=== PATIENT | female | born 1970 | race Asian ===

== ENCOUNTER 2020-12-10 07:48 | Emergency (ER) | payer SELFPAY ==
[~2020-12-10] VITALS: Ht 157.5 cm; Wt 72.6 kg
[2020-12-10] MEDS ORDERED: IV NORMAL SALINE 500 ML BAG IV ONE (08:00)
[2020-12-10] MEDS ORDERED: ONDANSETRON 4 MG/2 ML VIAL IV ONE (08:00)
[2020-12-10] MEDS ORDERED: MORPHINE SULFATE 2 MG/1 ML DISP.SYRIN IV ONE (08:00)
[2020-12-10 08:05] LABS: BASOPHILS % (AUTO) 0.3 % (0.0-2.0); HEMOGLOBIN 12.9 g/dL (10.9-14.3); LYMPHOCYTES # (AUTO) 0.9 K/uL (20.0-40.0); LYMPHOCYTES % (AUTO) 6.5 % (20.5-51.5); MEAN CORPUSCULAR HEMOGLOBIN 30.8 uug (24.7-32.8); MEAN CORPUSCULAR HGB CONC 34 g/dL (32.3-35.6); MEAN CORPUSCULAR VOLUME 90.7 fL (75.5-95.3); MONOCYTES # (AUTO) 0.9 K/uL (2.0-10.0); MONOCYTES % (AUTO) 6.7 % (0.0-11.0); NEUTROPHILS # (AUTO) 11.6 K/uL (1.8-8.9); NEUTROPHILS % (AUTO) 86.5 % (38.5-71.5); PLATELET COUNT (AUTO) 169 K/uL (179-408); RED BLOOD CELL COUNT(AUTO) 4.19 MIL/uL (3.63-4.92); WHITE BLOOD COUNT (AUTO) 13.4 K/uL (3.8-11.8)
[2020-12-10] MEDS ORDERED: ONDANSETRON 4 MG/2 ML VIAL ONE (08:08)
[2020-12-10] MEDS ORDERED: MORPHINE SULFATE 4 MG/1 ML DISP.SYRIN ONE (08:09)
[2020-12-10 08:18] LABS: BILIRUBIN,DIRECT 0.4 mg/dL (0.0-0.2); BILIRUBIN,TOTAL 1.3 mg/dL (0.2-1.0); CREATININE 0.8 mg/dL (0.6-1.3); POTASSIUM 3.3 mmol/L (3.5-5.1); TOTAL PROTEIN, SERUM 8.2 g/dL (6.4-8.2)
--- NOTE | 2020-12-10 08:25 | NUR ---
Patient seen by . IV placed in left arm, meds given as ordered.
--- NOTE | 2020-12-10 08:57 | NUR ---
Patient states pain and nausea have diminished
[2020-12-10 09:27] LABS: *BILIRUBIN,URIN NEGATIVE (NEGATIVE); *CLARITY,URINE CLEAR (CLEAR); *COLOR,URINE YELLOW (YELLOW); *KETONES,URINE 3+ (NEGATIVE); LEUKOCYTE ESTERASE ,URINE NEGATIVE (NEGATIVE); NITRITE, URINE NEGATIVE (NEGATIVE); UGLUCOSE NEGATIVE (NEGATIVE)
[2020-12-10 09:28] LABS: *URINE HCG, QUAL NEG (NEGATIVE)
[2020-12-10 09:35] LABS: *BLOOD, URINE 1+ (NEGATIVE)
[2020-12-10 09:36] LABS: MUCUS,URINE FEW /LPF (0-FEW); RBC,URINE 0-3 /HPF (0-3); SQUAMOUS EPITHELIAL CELL,UR MODERATE /HPF (NONE SEEN)
[2020-12-10 09:38] LABS: BACTERIA,URINE FEW /HPF (NONE SEEN)
[2020-12-10] MEDS ORDERED: CEFTRIAXONE 1 G in IV DEXTROSE 5% 50 ML IV ONE (09:45)
[2020-12-10] MEDS ORDERED: CEFTRIAXONE /D5W 50ML IVPB **ER PYXIS IV ONE (09:51)
[2020-12-10] MEDS ORDERED: IBUP-1957 PO (09:56)
[2020-12-10] MEDS ORDERED: CIPR-262 PO (09:56)
--- NOTE | 2020-12-10 10:00 | NUR ---
DC AND FOLLOW UP INSTRUCTIONS GIVEN AND EXPLAINED TO PATIENT WHO STATES HE UNDERSTANDS ALL INSTRUCTIONS
--- NOTE | 2020-12-10 10:08 | NUR ---
IV removed. Catheter intact and site benign. Pressure and 4x4 gauze applied to site. No bleeding noted.
== END 2020-12-10 10:08 | disposition home or self-care (01) ==
LOC: ER 07:48
DX: N39.0 Urinary tract infection, site not specified (principal); N13.9 Obstructive and reflux uropathy, unspecified
CPT/HCPCS: 36415; 74176; 76857; 80048; 80076; 81001; 83690; 84703; 85025; 87086; 96361; 96365; 96375; 99285; J0696; J2270; J2405; A4663

== ENCOUNTER 2020-12-11 12:16 | Inpatient (IN) | payer SELFPAY ==
[~2020-12-11] VITALS: Ht 157.5 cm; Wt 73.9 kg
[~2020-12-11 12:16] MED LIST: CIPR-262 PO; IBUP-1957 PO
--- NOTE | 2020-12-11 12:33 | NUR ---
Comfort measures maintained, warm blankets on, pending MD evaluation, NAD.
--- NOTE | 2020-12-11 12:38 | NUR ---
[email or web address], medical screening exam in progress
--- NOTE | 2020-12-11 12:59 | NUR ---
to CT scan in stable condition
[2020-12-11] MEDS ORDERED: IV NORMAL SALINE 1000 ML BAG IV ONE (13:00)
[2020-12-11] MEDS ORDERED: METOCLOPRAMIDE HCL 10 MG/2 ML VIAL IV ONE (13:00)
[2020-12-11] MEDS ORDERED: CEFTRIAXONE 1 G in IV DEXTROSE 5% 50 ML IV ONE (13:00)
[2020-12-11] MEDS ORDERED: diphenhydrAMINE 25 MG CAP PO ONE (13:00)
[2020-12-11] MEDS ORDERED: diphenhydrAMINE 50 MG/1 ML VIAL IV ONE (13:00)
[2020-12-11] MEDS ORDERED: ONDANSETRON 4 MG/2 ML VIAL IV ONE (13:00)
[2020-12-11] MEDS ORDERED: PROCHLORPERAZINE EDISYLATE 10 MG/2 ML VIAL IV ONE (13:00)
[2020-12-11] MEDS ORDERED: CEFTRIAXONE /D5W 50ML IVPB **ER PYXIS IV ONE (13:02)
[2020-12-11] MEDS ORDERED: diphenhydrAMINE 50 MG/1 ML VIAL ONE (13:02)
--- NOTE | 2020-12-11 13:09 | NUR ---
Patient is back from CT scan in same condition and prefers to keep her eyes close 2/2 headaches. Patient moans loudly & she said that hearing herself moan comforts her with low threshold for pains noted. Automatic BP cuff makes this patient moan loudly during blood pressure measurement.
[2020-12-11 13:50] LABS: CREATININE 0.8 mg/dL (0.6-1.3)
[2020-12-11] MEDS ORDERED: POTASSIUM CHLORIDE 20 MEQ TAB.PRT.SR PO ONE (14:00)
[2020-12-11] MEDS ORDERED: IV NORMAL SALINE 500 ML BAG IV ONE (14:15)
[2020-12-11 14:16] LABS: BASOPHILS % (AUTO) 0.1 % (0.0-2.0); HEMATOCRIT 34.8 % (31.2-41.9); LYMPHOCYTES # (AUTO) 0.9 K/uL (20.0-40.0); LYMPHOCYTES % (AUTO) 4.4 % (20.5-51.5); MEAN CORPUSCULAR HEMOGLOBIN 31.2 uug (24.7-32.8); MEAN CORPUSCULAR HGB CONC 34 g/dL (32.3-35.6); MEAN CORPUSCULAR VOLUME 90.7 fL (75.5-95.3); MONOCYTES # (AUTO) 1.5 K/uL (2.0-10.0); MONOCYTES % (AUTO) 7.5 % (0.0-11.0); NEUTROPHILS # (AUTO) 18.1 K/uL (1.8-8.9); PLATELET COUNT (AUTO) 140 K/uL (179-408); RED BLOOD CELL COUNT(AUTO) 3.83 MIL/uL (3.63-4.92); WHITE BLOOD COUNT (AUTO) 20.6 K/uL (3.8-11.8)
[2020-12-11] MEDS ORDERED: DEXAMETHASONE SOD PHOSPHATE 4 MG INJ IV ONE (14:30)
[2020-12-11] MEDS ORDERED: VANCOMYCIN 1G/D5W 200 ML PIGGYBACK IV ONE (14:30)
[2020-12-11] MEDS ORDERED: DEXAMETHASONE SOD PHOSPHATE 10 MG INJ ONE (14:38)
[2020-12-11 15:21] LABS: *URINE HCG, QUAL NEGATIVE (NEGATIVE)
--- NOTE | 2020-12-11 16:20 | NUR ---
Patient is resting comfortably in bed with eyes closed, pending [facility] hospitalist callback
--- NOTE | 2020-12-11 16:30 | NUR ---
received report from ER nurse, Una, pt c/o headaches and nausea. awake alert and oriented x4, pt on room air, no reports of pain at this time, no signs of distress. pt is ambulatory, BRP, able to swallow whole pills, pt continent of bowel and bladder. pt has IV access on the left hand 20g, intact and patent. bed in low and locked position, call light within reach, safety an dfall precautions in place. will continue with plan of care.
[2020-12-11] MEDS ORDERED: MAGNESIUM HYDROXIDE 30 ML LIQUID UDC PO PRN (17:15)
[2020-12-11] MEDS ORDERED: ACETAMINOPHEN 325 MG TABLET PO PRN (17:15)
[2020-12-11] MEDS ORDERED: ONDANSETRON 4 MG/2 ML VIAL IV PRN (17:15)
[2020-12-11] MEDS ORDERED: ZOLPIDEM 5 MG TABLET PO PRN (17:15)
[2020-12-11] MEDS ORDERED: Z GUARD REMEDY PASTE 57 GM TUBE TOP PRN (17:15)
[2020-12-11] MEDS ORDERED: MORPHINE SULFATE 2 MG/1 ML DISP.SYRIN IV PRN (17:15)
[2020-12-11] MEDS ORDERED: METOCLOPRAMIDE HCL 10 MG/2 ML VIAL IV PRN (17:15)
[2020-12-11 17:25] VITALS: BP 102/57
[2020-12-11] MEDS ORDERED: SUMATRIPTAN SUCCINATE 6 MG/0.5 ML VIAL SQ ONE (18:30)
--- NOTE | 2020-12-11 19:30 | NUR ---
Received patient lying in bed. AAOx4. In no acute distress. Denies any pain or SOB at this time. IV site on left hand intact and patent. Dressing changed on IV site. Will start IV fluids per order. Denies any nausea or vomiting. Safety measure initiated and call ugalde within reached.
[2020-12-11] MEDS: IV NS 1000 ML 1,000 ML IV PRN (19:38)
[2020-12-11 20:10] VITALS: BP 108/53
[2020-12-12] MEDS: VANCOMYCIN IV 1,000 MG in IV DEXTROSE 5% 250 ML IV SCH ×2 (02:10→15:16)
[2020-12-12 04:00] VITALS: BP 112/59
--- NOTE | 2020-12-12 06:12 | NUR ---
AAOx4. In no acute distress. Denies any pain or SOB. IV site on left hand intact and patent. IVF infusing. No adverse effect noted form IV ABX. Denies any nausea or vomiting. Refused DVT pump. Safety measure maintained and call ugalde within reached.
[2020-12-12 06:56] LABS: BASOPHILS % (AUTO) 0.1 % (0.0-2.0); EOSINOPHILS % (AUTO) 0.1 % (0.0-7.0); HEMATOCRIT 37.3 % (31.2-41.9); HEMOGLOBIN 12.4 g/dL (10.9-14.3); LYMPHOCYTES # (AUTO) 0.9 K/uL (20.0-40.0); LYMPHOCYTES % (AUTO) 4.7 % (20.5-51.5); MEAN CORPUSCULAR HEMOGLOBIN 30.3 uug (24.7-32.8); MEAN CORPUSCULAR HGB CONC 33 g/dL (32.3-35.6); MEAN CORPUSCULAR VOLUME 91.6 fL (75.5-95.3); MONOCYTES # (AUTO) 0.7 K/uL (2.0-10.0); MONOCYTES % (AUTO) 3.9 % (0.0-11.0); NEUTROPHILS # (AUTO) 16.8 K/uL (1.8-8.9); NEUTROPHILS % (AUTO) 91.2 % (38.5-71.5); PLATELET COUNT (AUTO) 179 K/uL (179-408); RED BLOOD CELL COUNT(AUTO) 4.07 MIL/uL (3.63-4.92); WHITE BLOOD COUNT (AUTO) 18.4 K/uL (3.8-11.8)
[2020-12-12 07:16] LABS: THYROID STIMULATING HORMONE 0.223 mIU/mL (0.358-3.740)
[2020-12-12 07:18] LABS: BILIRUBIN,TOTAL 0.3 mg/dL (0.2-1.0); CREATININE 0.8 mg/dL (0.6-1.3); MAGNESIUM 2.4 mg/dL (1.8-2.4); PHOSPHOROUS 1.4 mg/dL (2.5-4.9); POTASSIUM 3.3 mmol/L (3.5-5.1); TOTAL PROTEIN, SERUM 7.2 g/dL (6.4-8.2)
[2020-12-12] MEDS ORDERED: POTASSIUM CHLORIDE 10 MEQ TAB.PRT.SR PO ONE (08:15)
[2020-12-12] MEDS: PANTOPRAZOLE SODIUM 40 MG VIAL IV SCH (08:20)
[2020-12-12] MEDS: IV NS 1000 ML 1,000 ML IV PRN (10:27)
[2020-12-12 11:49] VITALS: BP 115/56
--- NOTE | 2020-12-12 12:08 | NUR ---
11:15am: SW met with this patient today, after receiving voicemail message from an individual named Jey, , wanting to speak with this SW regarding patient's insurance. Patient was awake, alert, oriented x 4, receptive to meeting with this transition social worker. Patient is a 50 year old female, who was admitted to the hospital on 12/11. Patient reports she came to the hospital for headache, dizziness, and side pain (kidney infection). Patient reports that she lives with her friend Jey, and is independent with ambulation and ADL's. Patient reported that she has family that live in [place], but currently she is living with Jey. Per patient's face sheet, patient is self-pay. SW discussed patient's insurance status, and patient confirmed that she does not have insurance, but that Shaista, patient services billing customer service representative from [facility] had just met with her to initiate the [employer] enrollment process. SW asked patient if SW can speak with Jey, and patient provided verbal consent for SW to speak with Jey. Discharge plans discussed, and patient stated that she would be returning home with Jey. 11:38am: LIZA called Jey, , who was available to speak with this SW. Jey stated that she had just received a call from Shaista, patient services billing customer service representative from [facility], and that Jey was aware that patient [employer] enrollment process had been initiated. Jey thanked LIZA for her call, and inquired about [employer] eligibility guidelines. SW provided this information. Jey thanked LIZA for information provided and stated that she didn't have any other concerns at this time. No further SS interventions needed at this time, however SW will continue to remain available, as needed.
[2020-12-12] MEDS: CEFTRIAXONE 1 G in IV DEXTROSE 5% 50 ML IV SCH (13:19)
[2020-12-12 16:10] VITALS: BP 107/50
[2020-12-12] MEDS ORDERED: SODIUM PHOSPHATE MM 15 MMOL in IV NORMAL SALINE 250 ML IV ONE (17:30)
[2020-12-12 20:00] VITALS: BP 125/74
[2020-12-12 20:10] VITALS: BP_SYST 125; BP_SYST 144; BP_DIAS 74; BP_DIAS 92
[2020-12-13] MEDS: VANCOMYCIN IV 1,000 MG in IV DEXTROSE 5% 250 ML IV SCH (02:14)
[2020-12-13 04:00] VITALS: BP 132/66
[2020-12-13 06:12] LABS: BASOPHILS % (AUTO) 0.2 % (0.0-2.0); EOSINOPHILS % (AUTO) 0.1 % (0.0-7.0); HEMATOCRIT 32.8 % (31.2-41.9); LYMPHOCYTES # (AUTO) 1.9 K/uL (20.0-40.0); LYMPHOCYTES % (AUTO) 13.5 % (20.5-51.5); MEAN CORPUSCULAR HEMOGLOBIN 30.4 uug (24.7-32.8); MEAN CORPUSCULAR HGB CONC 33 g/dL (32.3-35.6); MEAN CORPUSCULAR VOLUME 91.1 fL (75.5-95.3); MONOCYTES # (AUTO) 0.9 K/uL (2.0-10.0); MONOCYTES % (AUTO) 6.6 % (0.0-11.0); NEUTROPHILS # (AUTO) 11.2 K/uL (1.8-8.9); NEUTROPHILS % (AUTO) 79.6 % (38.5-71.5); PLATELET COUNT (AUTO) 193 K/uL (179-408); WHITE BLOOD COUNT (AUTO) 14.1 K/uL (3.8-11.8)
[2020-12-13 06:32] LABS: CREATININE 0.7 mg/dL (0.6-1.3); POTASSIUM 3.1 mmol/L (3.5-5.1)
[2020-12-13] MEDS: IV NS 1000 ML 1,000 ML IV PRN (07:58)
[2020-12-13] MEDS: PANTOPRAZOLE SODIUM 40 MG VIAL IV SCH (08:00)
[2020-12-13] MEDS ORDERED: POTASSIUM CHLORIDE 20 MEQ TAB.PRT.SR PO ONE (09:45)
[2020-12-13 11:39] VITALS: BP 123/72
[2020-12-13] MEDS: CEFTRIAXONE 1 G in IV DEXTROSE 5% 50 ML IV SCH (12:11)
[2020-12-13] MEDS ORDERED: NEUTRA PHOS PACKET PO ONE (13:45)
[2020-12-13] MEDS ORDERED: ONDA4TAB11 SL (14:51)
[2020-12-13] MEDS ORDERED: SUMA50TA PO (14:51)
[2020-12-13] MEDS ORDERED: CEPH500C2 PO (14:51)
[2020-12-13] MEDS ORDERED: VANCOMYCIN IV 1,250 MG in IV DEXTROSE 5% 250 ML IV SCH (15:00)
[2020-12-13 16:09] VITALS: BP 129/60
--- NOTE | 2020-12-13 17:03 | NUR ---
dc orders received noted and carried out.dc instruction and education given to the pt,brad alvarez per md orders.pt left the facility via private car in stable condition
[2020-12-14] MEDS ORDERED: PANTOPRAZOLE SODIUM 40 MG TABLET.DR PO SCH (07:00)
== END 2020-12-13 17:05 | disposition home or self-care (01) | DRG 690 ==
LOC: ER 12:18 → MEDSURG3 16:37
PROVIDERS: ADMIT Hospitalist; ATTEND Hospitalist
DX: N39.0 Urinary tract infection, site not specified (principal); E87.6 Hypokalemia; G43.909 Migraine, unspecified, not intractable, without status migrainosus; D69.6 Thrombocytopenia, unspecified; E66.9 Obesity, unspecified; D72.829 Elevated white blood cell count, unspecified; N13.9 Obstructive and reflux uropathy, unspecified; Z68.29 Body mass index [BMI] 29.0-29.9, adult
CPT/HCPCS: 36415; 70450; 71045; 83605; 83735; 84100; 84443; 84703; 85025; 85730; 87040; A4663; C9113; G0378; J0696; J0780; J1100; J1200; J2405; J2765; J3030; J3370; J3490; J7030; J7050; J7060